=== PATIENT | female | born 1980 | race Caucasian/White ===

== ENCOUNTER 2023-11-23 10:20 | Emergency (ER) | payer BC ==
[2023-11-23 10:40] VITALS: TEMP 97.3
[2023-11-23] MEDS ORDERED: Zofran 4 MG/2 ML VIAL ONE (11:10)
[2023-11-23] MEDS ORDERED: TORAdol 30 mg Injection ONE (11:10)
[2023-11-23] MEDS ORDERED: Sodium Chloride 0.9% 1000 ML 1,000 ML ONE (11:10)
--- NOTE | 2023-11-23 11:10 | ERPHSYRPT ---
- History of Present Illness Time Seen by Provider: 11/23/23 11:27 Source: patient Exam Limitations: no limitations Patient Subjective Stated Complaint: Pt states "I have pain in my left back near my kidney. It hurts really bad." Triage Nursing Assessment: Pt presnted alert and oriented X 3, skin pwd. Pt ambulates with a hunched over gait holding her left side. Pt able to speak in clear full sentences. PT resting comfortably on the bed. Physician History: 43-year-old female presents to emergency department for evaluation of left-sided flank pain. Patient states pain started abruptly this morning. No trauma no fe huan. Patient states she feels pain up near her left kidney down into her flank area. No history of kidney stones. She admits to history of urinary tract infections. Patient states she also experienced some chills. No sukumar fever. Patient symptoms are constant. Patient took pain medication this morning. Patient declined additional pain medication. Symptoms are mild to moderate in intensity. No specific worsening or improving factors. Patient otherwise feels well. She voices no other complaints or concerns at this time. Portions of this note were created with voice recognition technology. There may be grammatical, spelling, punctuation or sound alike errors Timing/Duration: today Severity: moderate Modifying Factors: Improves With: nothing Associated Symptoms: other Allergies/Adverse Reactions: cephalexin monohydrate [From Keflex] Allergy (Intermediate, Verified 11/20/11 13:44) Hives wheat Allergy (Unknown, Verified 11/20/11 17:05) jarvis Allergy (Unknown, Uncoded 11/20/11 17:05) rye bread Allergy (Unknown, Uncoded 11/20/11 17:05) Home Medications: No Reportable Medications [No Reported Medications] 11/23/23 [History] Hx Tetanus, Diphtheria Vaccination/Date Given: No (unknown) Hx Influenza Vaccination/Date Given: Yes (fall 2010) Hx Pneumococcal Vaccination/Date Given: No Immunizations Up to Date: No Travel Risk - International Travel Have you traveled outside of the country in past 3 weeks: No - Emerging Infectious Disease Are you exhibiting symptoms associated with any current EIDs: No - Review of Systems Constitutional: No Symptoms, No Fever, No Chills Eyes: No Symptoms Ears, Nose, & Throat: No Symptoms Respiratory: No Symptoms, No Cough, No Dyspnea Cardiac: No Symptoms, No Chest Pain, No Edema, No Syncope Abdominal/Gastrointestinal: No Symptoms, No Abdominal Pain, No Nausea, No Vomiting, No Diarrhea Genitourinary Symptoms: No Symptoms, No Dysuria Musculoskeletal: No Symptoms, No Back Pain, No Neck Pain Skin: No Symptoms, No Rash Neurological: No Symptoms, No Dizziness, No Focal Weakness, No Sensory Changes Psychological: No Symptoms Endocrine: No Symptoms Hematologic/Lymphatic: No Symptoms Immunological/Allergic: No Symptoms All Other Systems: Reviewed and Negative - Past Medical History Pertinent Past Medical History: Yes Neurological History: No Pertinent History ENT History: No Pertinent History Cardiac History: No Pertinent History Respiratory History: No Pertinent History Endocrine Medical History: Hypothyroidism, Other Musculoskeletal History: No Pertinent History GI Medical History: No Pertinent History History: No Pertinent History Psycho-Social History: No Pertinent History Female Reproductive Disorders: No Pertinent History Other Medical History: pt has celiac disease - Past Surgical History Past Surgical History: Yes Neuro Surgical History: No Pertinent History Cardiac: No Pertinent History Respiratory: No Pertinent History Gastrointestinal: Cholecystectomy Genitourinary: No Pertinent History Musculoskeletal: No Pertinent History Female Surgical History: No Pertinent History Other Surgical History: TUMOR REMOVED FROM RIGHT SIDE OF NECK. - Female History Hx Last Menstrual Period: menopause Hx Now: No - Social History Smoking Status: Former smoker How long have you smoked: 14 YRS Exposure to second hand smoke: No Drug Use: none Patient Lives Alone: No - Social Determinants of Health Will the patient participate in the screening: Declined to provide - Nursing Vital Signs Nursing Vital Signs: Initial Vital Signs Temperature 97.3 F 11/23/23 10:33 Pulse Rate 77 11/23/23 10:33 Respiratory Rate 20 11/23/23 10:33 Blood Pressure 172/83 11/23/23 10:33 O2 Sat by Pulse Oximetry 98 11/23/23 10:33 Pain Scale Pain Intensity 10 - Physical Exam General Appearance: no apparent distress, alert Eye Exam: PERRL/EOMI, eyes nml inspection Ears, Nose, Throat Exam: normal ENT inspection, TMs normal, pharynx normal, moist mucous membranes Neck Exam: normal inspection, non-tender, supple, full range of motion Respiratory Exam: normal breath sounds, lungs clear, airway intact, No r espiratory distress Cardiovascular Exam: regular rate/rhythm, normal heart sounds, normal peripheral pulses Gastrointestinal/Abdomen Exam: soft, normal bowel sounds, other (Left flank tenderness), No tenderness, No mass Back Exam: normal inspection, normal range of motion, No CVA tenderness, No vertebral tenderness Extremity Exam: normal inspection, normal range of motion, pelvis stable Neurologic Exam: alert, oriented x 3, cooperative, normal mood/affect, sensation nml, No motor deficits Skin Exam: normal color, warm, dry, No rash Lymphatic Exam: No adenopathy SpO2 Interpretation: normal SpO2: 98 O2 Delivery: Room Air - Course Nursing assessment & vital signs reviewed: Yes Ordered Tests: Active Orders 24 hr Category Date Time Status IV Insertion STAT Care 11/23/23 10:53 Active ABDOMEN AND PELVIS W/0 CONTRAS [CT] Stat Exams 11/23/23 10:54 Completed CBC W DIFF Stat Lab 11/23/23 11:05 Completed CMP Stat Lab 11/23/23 11:05 Completed CULTURE,URINE Stat Lab 11/23/23 10:58 Received HCG QUALITATIVE, URINE Stat Lab 11/23/23 10:58 Completed UA W/RFX UR CULTURE Stat Lab 11/23/23 10:58 Completed Medication Summary Discontinued Medications Generic Name Dose Route Start Last Admin Trade Name Jayq PRN Reason Stop Dose Admin Sodium Chloride 1,000 mls @ 999 mls/hr 11/23/23 10:53 11/23/23 12:27 Sodium Chloride 0.9% 1000 Ml IV 11/23/23 11:53 Infused .Q1H1M STA Infusion Sodium Chloride Confirm 11/23/23 11:10 Sodium Chloride 0.9% 1000 Ml Administered 11/23/23 11:11 Dose 1,000 mls @ ud .ROUTE .STK-MED ONE Ketorolac Tromethamine 30 mg 11/23/23 11:07 11/23/23 11:12 Ketorolac Tromethamine 30 Mg/Ml Inj IV 11/23/23 11:08 30 mg STAT ONE Administration Ketorolac Tromethamine Confirm 11/23/23 11:10 Ketorolac Tromethamine 30 Mg/Ml Inj Administered 11/23/23 11:11 Dose 30 mg .ROUTE .STK-MED ONE Morphine Sulfate 2 mg 11/23/23 13:18 11/23/23 13:21 Morphine Sulfate 2 Mg/Ml Inj IV 11/23/23 13:19 2 mg STAT ONE Administration Morphine Sulfate Confirm 11/23/23 13:20 Morphine Sulfate 2 Mg/Ml Inj Administered 11/23/23 13:21 Dose 2 mg .ROUTE .STK-MED ONE Ondansetron HCl 4 mg 11/23/23 11:08 11/23/23 11:12 Ondansetron Hcl 4 Mg/2 Ml Vial IV 11/23/23 11:09 4 mg STAT ONE Administration Ondansetron HCl Confirm 11/23/23 11:10 Ondansetron Hcl 4 Mg/2 Ml Vial Administered 11/23/23 11:11 Dose 4 mg .ROUTE .STK-MED ONE Lab/Rad Data: Laboratory Result Diagrams 11/23/23 11:05 11/23/23 11:05 Laboratory Results 11/23/23 11/23/23 11/23/23 Range/Units 11:05 11:05 10:58 WBC 5.8 (3.98-10.04) x10^3/uL RBC 4.78 (3.93-5.22) x10^6/uL Hgb 13.0 (11.2-15.7) g/dL Hct 40.3 (34.1-44.9) % MCV 84.3 (79.4-94.8) fL MCH 27.2 (25.6-32.2) pg MCHC 32.3 (32.2-35.5) g/dL RDW 14.8 H (11.7-14.4) % Plt Count 145 L (182-369) x10^3/uL MPV 12.1 (9.4-12.3) fL Gran % 63.1 (34.0-71.1) % Immature Gran % (Auto) 1.6 H (0.001-0.429) % Nucleat RBC Rel Count 0.0 (0.00-0.2) % Eos # (Auto) 0.01 L (0.04-0.36) x10^3/uL Immature Gran # (Auto) 0.09 H (0.001-0.031) x10^3u/L Absolute Lymphs (auto) 1.38 (1.18-3.74) x10^3/uL Absolute Monos (auto) 0.60 (0.24-0.86) x10^3/uL Absolute Nucleated RBC 0.00 (0.00-0.012) x10^3u/L Lymphocytes % 24.0 (19.3-51.7) % Monocytes % 10.4 (4.7-12.5) % Eosinophils % 0.2 L (0.7-5.8) % Basophils % 0.7 (0.1-1.2) % Absolute Granulocytes 3.63 (1.56-6.13) x10^3/uL Basophils # 0.04 (0.01-0.08) x10^3/uL Sodium 137 (135-145) mmol/L Potassium 3.9 (3.5-5.1) mmol/L Chloride 105 (98-107) mmol/L Carbon Dioxide 22 (22-30) mmol/L Anion Gap 14.4 (5-15) MEQ/L BUN 16 (7-17) mg/dL Creatinine 0.57 (0.52-1.04) mg/dL Estimated GFR 115.6 ML/MIN Glucose 121 H (74-106) mg/dL Calcium 9.3 (8.4-10.2) mg/dL Total Bilirubin 0.50 (0.2-1.3) mg/dL AST 28 (14-36) U/L ALT 26 (0-35) U/L Alkaline Phosphatase 91 (38-126) U/L Serum Total Protein 7.8 (6.3-8.2) g/dL Albumin 4.6 (3.5-5.0) g/dL Urine Color (Yellow) Urine Appearance (Clear) Urine pH (4.6-8.0) Ur Specific Left Hand (1.005-1.030) Urine Protein (Negative) Urine Glucose (UA) (Negative) mg/dL Urine Ketones (Negative) Urine Blood (Negative) Urine Nitrite (Negative) Urine Bilirubin (Negative) Urine Urobilinogen (0.2) mg/dL Ur Leukocyte Esterase (Negative) U Hyaline Cast (Auto) (0-2) /LPF Urine Microscopic RBC (0-5) /HPF Urine Microscopic WBC (0-5) /HPF Ur Epithelial Cells (None Seen) /HPF Urine Bacteria (None Seen) /HPF Urine Culture Reflexed (NO) Urine HCG, Qual NEGATIVE (NEGATIVE) 11/23/23 Range/Units 10:58 WBC (3.98-10.04) x10^3/uL RBC (3.93-5.22) x10^6/uL Hgb (11.2-15.7) g/dL Hct (34.1-44.9) % MCV (79.4-94.8) fL MCH (25.6-32.2) pg MCHC (32.2-35.5) g/dL RDW (11.7-14.4) % Plt Count (182-369) x10^3/uL MPV (9.4-12.3) fL Gran % (34.0-71.1) % Immature Gran % (Auto) (0.001-0.429) % Nucleat RBC Rel Count (0.00-0.2) % Eos # (Auto) (0.04-0.36) x10^3/uL Immature Gran # (Auto) (0.001-0.031) x10^3u/L Absolute Lymphs (auto) (1.18-3.74) x10^3/uL Absolute Monos (auto) (0.24-0.86) x10^3/uL Absolute Nucleated RBC (0.00-0.012) x10^3u/L Lymphocytes % (19.3-51.7) % Monocytes % (4.7-12.5) % Eosinophils % (0.7-5.8) % Basophils % (0.1-1.2) % Absolute Granulocytes (1.56-6.13) x10^3/uL Basophils # (0.01-0.08) x10^3/uL Sodium (135-145) mmol/L Potassium (3.5-5.1) mmol/L Chloride (98-107) mmol/L Carbon Dioxide (22-30) mmol/L Anion Gap (5-15) MEQ/L BUN (7-17) mg/dL Creatinine (0.52-1.04) mg/dL Estimated GFR ML/MIN Glucose (74-106) mg/dL Calcium (8.4-10.2) mg/dL Total Bilirubin (0.2-1.3) mg/dL AST (14-36) U/L ALT (0-35) U/L Alkaline Phosphatase (38-126) U/L Serum Total Protein (6.3-8.2) g/dL Albumin (3.5-5.0) g/dL Urine Color Yellow (Yellow) Urine Appearance Cloudy A (Clear) Urine pH 5.0 (4.6-8.0) Ur Specific Left Hand 1.020 (1.005-1.030) Urine Protein Trace A (Negative) Urine Glucose (UA) Negative (Negative) mg/dL Urine Ketones Trace A (Negative) Urine Blood Large A (Negative) Urine Nitrite Negative (Negative) Urine Bilirubin Negative (Negative) Urine Urobilinogen 0.2 (0.2) mg/dL Ur Leukocyte Esterase Negative (Negative) U Hyaline Cast (Auto) NONE SEEN (0-2) /LPF Urine Microscopic RBC >100 A (0-5) /HPF Urine Microscopic WBC 0-2 (0-5) /HPF Ur Epithelial Cells Rare (None Seen) /HPF Urine Bacteria None Seen (None Seen) /HPF Urine Culture Reflexed YES (NO) Urine HCG, Qual (NEGATIVE) - Progress Progress: improved Progress Note: I spoke to Dr. Tristan urologist at [facility] who accepts transfer at 1410. Patient is a 43-year-old female presents to our ED with flank pain. Physical exam reveals no flank tenderness. Laboratory workup essentially nonremarkable. We are having difficulty controlling patient's pain. CT scan reveals a proximal 6 to 7 mm ureterolithiasis causing partial obstruction. Patient is nauseous as well. at bedside. They are requesting to have the stone removed as patient is very uncomfortable. They agree to transfer to [facility] in [place]. Approximately 50 miles away. They agreed ground transport via ambulance. Portions of this note were created with voice recognition technology. There may be grammatical, spelling, punctuation or sound alike errors Complexity problem addressed is moderate acute complicated. No critical care time. Complex of data reviewed and analyzed is extensive. Test ordered test reviewed results analyzed and correlated clinically with history and physical exam. Risk of complication and or risk of morbidity/mortality patient management is high. Patient requires transfer to higher level of care. Vital stable. Time spent to transfer patient approximately 20 minutes. Plan of care established for shared decision making. No social determinants of health present impede follow-up. Portions of this note were created with voice recognition technology. There may be grammatical, spelling, punctuation or sound alike errors 11/23/23 14:11 Patient accepted by [facility] hospitalist Dr. Jonas at 2:21 PM 11/23/23 14:22 Counseled pt/family regarding: lab results, diagnosis, rad results - Departure Clinical Impression: Fatty liver, Ureterolithiasis, Hydronephrosis, Flank pain, Hematuria Condition: Stable Critical Care Time: No Referrals: DOCTOR,NO FAMILY [Primary Care Provider] - Follow up/PCP as directed MARCO ANTONIO LEVI DO [ACTIVE STAFF] - Follow up/PCP as directed Additional Instructions: Discharge/Care Plan ANGEL MONROE was seen on 11/23/23 in the Emergency Room. The patient was counseled regarding Diagnosis,Lab results, Imaging studies, need for follow up and when to return to the Emergency Room. Prescriptions given: Discharge Note I have spoken with the patient and/or caregivers. I have explained the patient's condition, diagnosis and treatment plan based on the information available to me at this time. I have answered the patient's and/or caregiver's questions and addressed any concerns. The patient and/or caregivers have as good understanding of the patient's diagnosis, condition and treatment plan as can be expected at this point. The vital signs have been stable. The patient's condition is stable and appropriate for discharge from the emergency department. The patient will pursue further outpatient evaluation with the primary care physician or other designated or consulting physician as outlined in the discharge instructions. The patient and/or caregivers are agreeable to this plan of care and follow-up instructions have been explained in detail. The patient and/or caregivers have received these instruction. The patient/and or caregivers are aware that any significant change in condition or worsening of symptoms should prompt an immediate return to this or the closest emergency department or call 911.
[2023-11-23] MEDS: Zofran 4 MG/2 ML VIAL IV ONE (11:12)
[2023-11-23] MEDS: Sodium Chloride 0.9% 1000 ML 1,000 ML IV STA (11:12)
[2023-11-23] MEDS: TORAdol 30 mg Injection IV ONE (11:12)
[2023-11-23 11:27] LABS: Absolute Neutrophil Ct (ANC) 3.63 x10^3/uL (1.56-6.13); BASOPHIL % 0.7 % (0.1-1.2); Basophil (Absolute #) 0.04 x10^3/uL (0.01-0.08); Eosinophil % 0.2 % (0.7-5.8); Eosinophil (Absolute #) 0.01 x10^3/uL (0.04-0.36); Hematocrit 40.3 % (34.1-44.9); IMMATURE GRAN # 0.09 x10^3u/L (0.001-0.031); IMMATURE GRAN % 1.6 % (0.001-0.429); Lymphocyte (Absolute #) 1.38 x10^3/uL (1.18-3.74); Mean Cell Volume 84.3 fL (79.4-94.8); Mean Corpuscular Hemoglobin 27.2 pg (25.6-32.2); Mean Corpuscular Hgb Concent. 32.3 g/dL (32.2-35.5); Mean Platelet Volume 12.1 fL (9.4-12.3); Monocytes % 10.4 % (4.7-12.5); Neutrophil % 63.1 % (34.0-71.1); Platelet Count 145 x10^3/uL (182-369); Red Blood Count 4.78 x10^6/uL (3.93-5.22); Red Cell Distribution Width 14.8 % (11.7-14.4); White Blood Count 5.8 x10^3/uL (3.98-10.04)
[2023-11-23 11:44] LABS: HCG URINE TEST NEGATIVE (NEGATIVE)
[2023-11-23 11:45] LABS: ALBUMIN 4.6 g/dL (3.5-5.0); ANION GAP 14.4 MEQ/L (5-15); BILIRUBIN,TOTAL 0.5 mg/dL (0.2-1.3); Calcium 9.3 mg/dL (8.4-10.2); Creatinine 1 0.57 mg/dL (0.52-1.04); EST GLOMERULAR FILTRATION RATE 115.6 ML/MIN; Potassium 3.9 mmol/L (3.5-5.1); Total Protein 7.8 g/dL (6.3-8.2)
[2023-11-23 11:47] LABS: Appearance Cloudy (Clear); Bacteria None Seen /HPF (None Seen); Bilirubin Negative (Negative); Blood Large (Negative); Epithelial Cells Rare /HPF (None Seen); Glucose, Urine Negative (Negative); Hyaline Casts NONE SEEN /LPF (0-2); Ketones Trace (Negative); Leukocyte Esterase Negative (Negative); Nitrite Negative (Negative); Protein,Urine Dip Trace (Negative); RBC >100 /HPF (0-5); Urobilinogen 0.2 mg/dL (0.2); WBC 0-2 /HPF (0-5)
[2023-11-23 11:54] LABS: ADD URINE CULTURE? YES (NO)
[2023-11-23 12:09] VITALS: RESP 18
--- NOTE | 2023-11-23 12:54 | XRAY ---
Indication: Left flank pain and vomiting. Multiple contiguous axial images obtained through the abdomen and pelvis without contrast using renal stone protocol. Comparison: None Lung bases demonstrates minimal peripheral fibrosis/scarring. No infiltrate or effusion is heart not enlarged. There is 6-7 mm proximal left ureteral calculus, approximately L3 level. Mild hydronephrosis consistent with partial obstructive uropathy. No renal calculus or evidence for obstructive uropathy on the right. Noncontrasted stomach and bowel loops appear nonobstructed with normal appendix. Previous cholecystectomy. Mild fatty liver. Pancreas also demonstrates diffuse fatty replacement. No free fluid/air. Remaining liver, spleen, adrenal glands, bladder, uterus, and aorta are unremarkable for noncontrast exam. Osseous structures intact. Impression: 6-7 mm proximal left ureteral calculus producing partial obstruction. Incidental fatty liver. Remaining CT abdomen/pelvis without contrast exam is negative.
[2023-11-23] MEDS ORDERED: MORPHINE SULFATE 2 MG INJ ONE (13:20)
[2023-11-23] MEDS: MORPHINE SULFATE 2 MG INJ IV ONE (13:21)
[2023-11-23] MEDS ORDERED: Hydromorphone 1 mg/ml Injection ONE ×2 (14:47→16:14)
[2023-11-23] MEDS: Hydromorphone 1 mg/ml Injection IV ONE ×2 (14:48→16:16)
[2023-11-23 15:03] VITALS: PULSE 68
[2023-11-23 16:14] VITALS: BP 176/104; O2SAT 98
== END 2023-11-23 16:39 | disposition short-term general hospital (02) ==
LOC: ED 10:20
DX: N20.1 Calculus of ureter (principal); M54.50 Low back pain, unspecified; N13.30 Unspecified hydronephrosis; R31.9 Hematuria, unspecified
CPT/HCPCS: 36415; 74176; 80053; 81001; 81025; 85025; 87086; 96360; 96374; 96375; 96376; 99285; J1170; J1885; J2270; J2405